=== PATIENT | female | born 1985 | race Caucasian/White ===

== ENCOUNTER 2019-08-29 02:40 | Day surgery (SDC) | payer SELFPAY ==
[2019-08-29] MEDS ORDERED: Sodium Chloride 0.9% 10 ML SDV IV STA (03:11)
[2019-08-29] MEDS ORDERED: Sodium Chloride 0.9% 10 ML Syringe FLUSH PRN (03:11)
--- NOTE | 2019-08-29 03:22 | EDM.PDOC ---
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 Blake is a pleasant 34-year-old woman with no chronic medical problems, , with no past surgical history, who now presents to the ED stating that she had her normal painless menstrual period from 08/05/2019 through 08/09/2019 , then has been spotting with some bleeding, no clots, since 08/12/2019. She then developed suprapubic crampy/sharp pain 2 to 3 days ago, which became worse tonight. The pain does not radiate, and she has not identified any modifiers. No prior similar symptoms. The patient has not had a medical evaluation of her current symptoms. She has not seen a Sales Engineering Manager since her last miscarriage in 2017. She has not taken any [id number] or home remedies to treat her symptoms, stating "I don't do medicine", even if she had a medical condition. Here in the ED, the patient's initial BP is found to be mildly elevated at 148/ 84, otherwise, she is hemodynamically stable, afebrile, saturating 96% on room air. Other than her vaginal bleeding and suprapubic pain, the patient denies recent fever, chills, sore throat, ear pain, nasal or sinus congestion, cough, dyspnea , chest pain, palpitations, nausea, vomiting, constipation, diarrhea, urinary symptoms, recent weight gain or weight loss, recent bloody bowel movements or black bowel movements, recent joint aches, headaches, or rashes. The patient last ate around 20:45 last night. The patient last saw the PCP Dr. Heladio Magallanes about 15 years ago. She saw the Sales Engineering Manager Dr. Víctor Hampton once, on 01/14/2017. Right Lower Abdomen Pain Score (Numeric/FACES): 10 - Related Data Allergies Allergy/AdvReac Type Severity Reaction Status Date / Time Latex, Natural Rubber Allergy Severe Rash Verified 08/29/19 02:53 Home Meds: Home Meds . 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 ED EXAM, GI/ABD - Physical Exam Exam: See Below Exam Limited By: No Limitations General Appearance: Alert, WD/WN, No Apparent Distress Eyes: Bilateral: Normal Appearance, EOMI Ears: Normal External Exam, Hearing Grossly Normal Nose: Normal Inspection Throat/Mouth: Normal Inspection, Normal Lips, Normal Voice, No Airway Compromise Head: Atraumatic, Normocephalic Neck: Normal Inspection, Full Range of Motion Respiratory/Chest: No Respiratory Distress, Lungs Clear, Normal Breath Sounds, No Accessory Muscle Use Cardiovascular: Normal Peripheral Pulses, Regular Rate, Rhythm, No Edema, No Gallop, No JVD, No Murmur, No Rub GI/Abdominal Exam: Normal Bowel Sounds, Soft, No Organomegaly, No Distention, No Abnormal Bruit, No Mass, Tender (Considerable, suprapubic, with less tenderness to the right lower quadrant and left lower quadrant. Mild tenderness to the right upper quadrant, with virtually no tenderness to the left upper quadrant.). No: Rebound (Female) Exam: Other (A small amount of fresh-appearing blood was in the vagina, but no clots or tissue. No vaginal lesions seen. Nulliparous cervical os was closed, with no active bleeding seen.) Rectal (Female) Exam: Deferred Back Exam: Normal Inspection, Full Range of Motion, NT Extremities: Normal Inspection, Normal Range of Motion, No Pedal Edema, Normal Capillary Refill Neurological: Alert, Oriented, Normal Cognition, No Motor/Sensory Deficits Psychiatric: Normal Affect Skin Exam: Warm, Dry, Intact, Normal Color, No Rash Course - Vital Signs Last Recorded V/S: Last Vital Signs Temp 36.7 C 08/29/19 02:50 Pulse 75 08/29/19 02:50 Resp 16 08/29/19 02:50 BP 148/84 H 08/29/19 02:50 Pulse Ox 96 08/29/19 02:50 Orthostatic Blood Pressure [ 109/65 Standing] Orthostatic Blood Pressure [ 111/66 Supine] - Orders/Labs/Meds Orders: Active Orders 24 hr Category Date Time Status Admission Status [Patient Status] [ADT] Routine ADT 08/29/19 05:36 Active Insert Yuen Catheter [Insert Urinary Catheter] [OM.PC] Care 08/29/19 03:40 Ordered Stat Orthostatic Vital Signs [RC] STAT Care 08/29/19 03:09 Active Peripheral IV Care [RC] . DIRECTED Care 08/29/19 03:12 Active Urinary Catheter Assessment [RC] ASDIRECTED Care 08/29/19 03:41 Active Transvaginal Non OB [US] Stat Exams 08/29/19 03:10 Taken CORONAVIRUS COVID-19 PCR PHL Stat Lab 08/29/19 05:26 Ordered Sodium Chloride 0.9% [Saline Flush] Med 08/29/19 03:11 Active 10 ml FLUSH ASDIRECTED PRN Peripheral IV Insertion Adult [OM.PC] Routine Oth 08/29/19 03:11 Ordered Schedule Procedure [COMM] Stat Oth 08/29/19 05:36 Ordered Medication Orders Sodium Chloride (Saline Flush) 10 ml FLUSH ASDIRECTED PRN PRN Reason: Keep Vein Open Last Admin: 08/29/19 03:42 Dose: 10 ml Labs: Laboratory Tests 08/29/19 08/29/19 08/29/19 Range/Units 03:10 03:10 03:10 WBC 7.62 (3.98-10.04) K/mm3 RBC 4.35 (3.98-5.22) M/mm3 Hgb 12.9 (11.2-15.7) gm/dl Hct 39.7 (34.1-44.9) % MCV 91.3 (79.4-94.8) fl MCH 29.7 (25.6-32.2) pg MCHC 32.5 (32.2-35.5) g/dl RDW Std Deviation 39.7 (36.4-46.3) fL Plt Count 288 (182-369) K/mm3 MPV 10.1 (9.4-12.3) fl Neutrophils % (Manual) 43 (40-60) % Band Neutrophils % 2 (0-10) % Lymphocytes % (Manual) 35 (20-40) % Atypical Lymphs % 11 % Monocytes % (Manual) 7 (2-10) % Eosinophils % (Manual) 1 (0.7-5.8) % Basophils % (Manual) 1 (0.1-1.2) Platelet Estimate Adequate Plt Morphology Comment Normal RBC Morph Comment Normal PT 9.8 (9.7-12.0) SECONDS INR 0.93 APTT 25 (22-31) SECONDS Sodium 143 (136-145) mEq/L Potassium 4.2 (3.5-5.1) mEq/L Chloride 106 (98-107) mEq/L Carbon Dioxide 23 (21-32) mEq/L Anion Gap 18.2 H (5-15) BUN 5 L (7-18) mg/dL Creatinine 0.7 (0.55-1.02) mg/dL Est Cr Clr Drug Dosing 98.71 mL/min Estimated GFR (MDRD) > 60 (>60) mL/min BUN/Creatinine Ratio 7.1 L (14-18) Glucose 99 (74-106) mg/dL Calcium 8.6 (8.5-10.1) mg/dL Magnesium 2.1 (1.8-2.4) mg/dl Total Bilirubin 0.2 (0.2-1.0) mg/dL AST 17 (15-37) U/L ALT 22 (14-59) U/L Alkaline Phosphatase 62 (46-116) U/L Total Protein 8.2 (6.4-8.2) g/dl Albumin 4.2 (3.4-5.0) g/dl Globulin 4.0 gm/dL Albumin/Globulin Ratio 1.1 (1-2) HCG, Quant mIU/mL Urine Color (Yellow) Urine Appearance (Clear) Urine pH (5.0-8.0) Ur Specific Kempner (1.005-1.030) Urine Protein (Negative) Urine Glucose (UA) (Negative) Urine Ketones (Negative) Urine Occult Blood (Negative) Urine Nitrite (Negative) Urine Bilirubin (Negative) Urine Urobilinogen (0.2-1.0) Ur Leukocyte Esterase (Negative) Urine RBC (0-5) /hpf Urine WBC (0-5) /hpf Ur Squamous Epith Cells (0-5) /hpf Urine Bacteria (FEW) /hpf Urine Mucus (FEW) /hpf 08/29/19 08/29/19 Range/Units 03:10 03:20 WBC (3.98-10.04) K/mm3 RBC (3.98-5.22) M/mm3 Hgb (11.2-15.7) gm/dl Hct (34.1-44.9) % MCV (79.4-94.8) fl MCH (25.6-32.2) pg MCHC (32.2-35.5) g/dl RDW Std Deviation (36.4-46.3) fL Plt Count (182-369) K/mm3 MPV (9.4-12.3) fl Neutrophils % (Manual) (40-60) % Band Neutrophils % (0-10) % Lymphocytes % (Manual) (20-40) % Atypical Lymphs % % Monocytes % (Manual) (2-10) % Eosinophils % (Manual) (0.7-5.8) % Basophils % (Manual) (0.1-1.2) Platelet Estimate Plt Morphology Comment RBC Morph Comment PT (9.7-12.0) SECONDS INR APTT (22-31) SECONDS Sodium (136-145) mEq/L Potassium (3.5-5.1) mEq/L Chloride (98-107) mEq/L Carbon Dioxide (21-32) mEq/L Anion Gap (5-15) BUN (7-18) mg/dL Creatinine (0.55-1.02) mg/dL Est Cr Clr Drug Dosing mL/min Estimated GFR (MDRD) (>60) mL/min BUN/Creatinine Ratio (14-18) Glucose (74-106) mg/dL Calcium (8.5-10.1) mg/dL Magnesium (1.8-2.4) mg/dl Total Bilirubin (0.2-1.0) mg/dL AST (15-37) U/L ALT (14-59) U/L Alkaline Phosphatase (46-116) U/L Total Protein (6.4-8.2) g/dl Albumin (3.4-5.0) g/dl Globulin gm/dL Albumin/Globulin Ratio (1-2) HCG, Quant 957.0 mIU/mL Urine Color Yellow (Yellow) Urine Appearance Clear (Clear) Urine pH 6.5 (5.0-8.0) Ur Specific Kempner 1.015 (1.005-1.030) Urine Protein Negative (Negative) Urine Glucose (UA) Negative (Negative) Urine Ketones Negative (Negative) Urine Occult Blood 2+ H (Negative) Urine Nitrite Negative (Negative) Urine Bilirubin Negative (Negative) Urine Urobilinogen 0.2 (0.2-1.0) Ur Leukocyte Esterase Negative (Negative) Urine RBC 0-5 (0-5) /hpf Urine WBC 0-5 (0-5) /hpf Ur Squamous Epith Cells 0-5 (0-5) /hpf Urine Bacteria Not seen (FEW) /hpf Urine Mucus Rare (FEW) /hpf Meds: Medications Generic Name Dose Route Start Last Admin Trade Name Freq PRN Reason Stop Dose Admin Sodium Chloride 10 ml 08/29/19 03:11 08/29/19 03:42 Saline Flush FLUSH 10 ml ASDIRECTED PRN Administration Keep Vein Open Discontinued Medications Generic Name Dose Route Start Last Admin Trade Name Freq PRN Reason Stop Dose Admin Sodium Chloride 10 ml 08/29/19 03:11 08/29/19 03:42 Normal Saline IV 08/29/19 03:12 Not Given ASDIRECTED STA - Re-Assessments/Exams Free Text/Narrative Re-Assessment/Exam: 08/29/19 03:13 As above, the patient has had vaginal spotting and bleeding without clots since 08/12/2019, and suprapubic abdominal pain for the past 2 to 3 days, worse tonight. On examination, she has considerable tenderness to her suprapubic region. She will be placed into the gynecologic examination room so that I can examine her cervix. I have ordered a work-up that includes blood work, a urinalysis by quick catheter, orthostatics, and a pelvic ultrasound. The patient asked if she could have some water, but if her current work-up is not revealing, I may need to order a CT of her abdomen and pelvis, and there is the possibility that she could have a surgical abdomen, with something like an ectopic or appendicitis, therefore I need to keep her n.p.o. I offered to give her IV fluid, but she stated that she does not take any medications, even if she has a medical condition, and declined the offer for IV fluid, along with an offer for pain medication and anti-nausea medication. 05/25/20 03:32 On pelvic examination, there was a small amount of fresh-appearing blood in the vagina, but no clots or tissue. No vaginal lesions seen. Her nulliparous cervical os was closed, with no active bleeding seen. 08/29/19 04:23 The patient's CBC is unremarkable. Her CMP is remarkable for an anion gap mildly elevated at 18.2, but with a bicarbonate normal at 23, and the remainder of her CMP being unremarkable. Her magnesium level is within normal limits at 2.1. Her coags are within normal limits. Her quantitative hCG is elevated at 957. Her urinalysis is remarkable for 2+ occult blood with 0-5 RBCs, and is otherwise unremarkable. The patient is back from ultrasound, but the results are still pending. Her mildly elevated quantitative hCG with a closed cervix suggests either an ectopic or a missed . 08/29/19 04:29 The patient is not orthostatic. Transvaginal ultrasound is read by [facility] as "Ultrasound worksheet described a heterogeneous tubular structure RIGHT adnexa. Unclear if this represents a possible fallopian tube versus bowel loop. From images provided very difficult to interpret. Recommend further evaluation with cross-sectional imaging." At this time, I have to consider that the patient's symptoms are due to an ectopic . 08/29/19 04:[address] Wilkerson at 04:32. He will come to the ED to evaluate the patient. He did not need any additional tests at this time. 08/29/19 04:42 Test results and my conversation with Dr. Wilkerson discussed with the patient. She stated that if Dr. Wilkerson needs to take her to the OR, she will agreed to the anesthesia/medication. She stated that she does not like to take medications, but will do so if necessary. 08/29/19 04:55 Dr. Wilkerson is here. 08/29/19 05:21 Dr. Wilkerson is going to take the patient to the OR for an exploratory laparoscopy. We are calling the OR crew in now. 08/29/19 05:27 I have ordered a stat pre-op [employer] NOW COVID-19 assay SARS-CoV-2 virus test as well as a [employer] GeneXpert Xpress System SARS-CoV-2 virus test. Departure - Departure Time of Disposition: 05:22 Disposition: DC/Tfer to [facility] Condition: Good Clinical Impression: Ectopic - Discharge Information *PRESCRIPTION DRUG MONITORING PROGRAM REVIEWED*: Not Applicable *COPY OF PRESCRIPTION DRUG MONITORING REPORT IN PATIENT REFUGIO: Not Applicable Referrals: PCP,None [Primary Care Provider] - Elpidio Wilkerson MD [Physician] - Forms: ED Department Discharge Sepsis Event Note - Evaluation Sepsis Screening Result: No Definite Risk - Focused Exam Vital Signs: Vital Signs Temp Pulse Resp BP Pulse Ox 08/29/19 02:50 36.7 C 75 16 148/84 H 96 Date Exam was Performed: 08/29/19 Time Exam was Performed: 05:37 - My Orders Last 24 Hours: My Active Orders 08/29/19 03:09 Orthostatic Vital Signs [RC] STAT 08/29/19 03:10 Transvaginal Non OB [US] Stat 08/29/19 03:11 Sodium Chloride 0.9% [Saline Flush] 10 ml FLUSH ASDIRECTED PRN Peripheral IV Insertion Adult [OM.PC] Routine 08/29/19 03:12 Peripheral IV Care [RC] . DIRECTED 08/29/19 03:40 Insert Yuen Catheter [Insert Urinary Catheter] [OM.PC] Stat 08/29/19 03:41 Urinary Catheter Assessment [RC] ASDIRECTED 08/29/19 05:26 CORONAVIRUS COVID-19 PCR PHL Stat 08/29/19 05:36 Admission Status [Patient Status] [ADT] Routine Schedule Procedure [COMM] Stat - Assessment/Plan Last 24 Hours: My Active Orders 08/29/19 03:09 Orthostatic Vital Signs [RC] STAT 08/29/19 03:10 Transvaginal Non OB [US] Stat 08/29/19 03:11 Sodium Chloride 0.9% [Saline Flush] 10 ml FLUSH ASDIRECTED PRN Peripheral IV Insertion Adult [OM.PC] Routine 08/29/19 03:12 Peripheral IV Care [RC] . DIRECTED 08/29/19 03:40 Insert Yuen Catheter [Insert Urinary Catheter] [OM.PC] Stat 08/29/19 03:41 Urinary Catheter Assessment [RC] ASDIRECTED 08/29/19 05:26 CORONAVIRUS COVID-19 PCR PHL Stat 08/29/19 05:36 Admission Status [Patient Status] [ADT] Routine Schedule Procedure [COMM] Stat
--- NOTE | 2019-08-29 05:45 | PCM.LDHP ---
L&D History of Present Illness - General Date of Service: 08/29/19 Admit Problem/Dx: Admission Diagnosis/Problem Admission Diagnosis/Problem 08/29/19 05:31 Billie Is a 34-year-old 3 para 0020 white female who is seen in the emergency room for complaints of right lower quadrant pain and is found to have positive test and an abnormal ultrasound showing a heterogeneous tubular structure in the right adnexal area. Findings possibly consistent with ectopic . Source of Information: Patient History Limitations: Reports: No Limitations - History of Present Illness Introduction:: Billie Is a 34-year-old 3 para 0020 white female who is seen in the emergency room for complaints of right lower quadrant pain and is found to have positive test and an abnormal ultrasound showing a heterogeneous tubular structure in the right adnexal area. Findings possibly consistent with ectopic . She reports pain started 2-3 days ago. Increased tonight sharply to the level of 10/10. She had her certain last menstrual period started on 08/05/2019. Is heavy for 5 days after which she had spotting until the present time. She denies any shoulder pain, neck pain, abdominal distention. Bleeding is heavy spotting with normal clot passage or aggressive bleeding. She requires approximate 4-5 tampons per day. 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 She does not have any significant symptoms at this time. On evaluation in the emergency room notes have respiratory quadrant pain. The quantitative beta hCG is not 157.0 mU/mL. Her CBC, compassed metabolic profile and coags are normal. Urinalysis is normal to exception of 2+ blood. Ultrasound shows uterus which is normal. Endometrial stripe is normal at 9 mm thickness. No evidence of intrauterine or gestational sac. In the right adnexal there is a small 1.4 x 1.4 x 1.1 hemorrhagic cyst in the right ovary. There is a heterogeneous tubular structure in the right adnexa. It is unclear as to whether this represents bowel or right fallopian tube. There is a small amount of free fluid. There is normal left adnexal structures with no masses and normal ovarian blood flow. Cannot entirely rule out ectopic . Discussion is held patient has to findings and possible risk of ectopic . The procedure of laparoscopy, possible salpingectomy, possible laparotomy are discussed in detail including the risk of allergy, anesthesia, bleeding, blood clots, infection, injury, Borofax on future fertility and possible need for blood transfusion. She appears understand and wish to proceed. She has signed a consent. Allergies: Latex Medications: None Past medical history: 1. Spontaneous 2 first trimester Past surgical history: Unremarkable Family history: Mother and father are alive and generally well. Mother takes a medication heart palpitations. Patient has 3 older sisters who are alive and healthy. All grandparents are . They're all elderly in their 80s. Maternal grandmother had dementia but was involved in motor vehicle accident in a longterm for many years prior to . Paternal grandfather had strokes prior to his demise. Paternal grandmother and grandfather secondary to heart disease and blood vessel disease. No anesthesia, bleeding, blood clotting problems are noted in the family. Social history: Patient is single. Her boyfriend is in the hospital attending her but waiting for her in the waiting room. She smokes approximately pack cigarettes per week, uses alcohol 2 times per week but denies any drug use whatsoever. He works at 2 jobs ones with [employer] and the other as a warehouse puller at [employer]. Review of systems: In general patient has complaints of right lower quadrant pain onset 2 days ago along with vaginal bleeding.. Skin: Negative Lungs: No infectious symptoms or shortness of breath Cardiovascular: No chest pain or exercise intolerance Breasts: No lumps, changes in size, pain, dimpling, discharge or axillary or supraclavicular concerns. GI: Negative : See history of present illness Musculoskeletal: Negative Neurological: Negative In general the patient is well-developed, well-nourished, pleasant female of stated age in no acute distress. Blood pressure mildly increased. Pulses in the 90s. Skin is warm dry without lesions. HEENT, neck and back within normal limits. Lungs are clear with good breath sounds in all lung burton. Cardiovascular exam shows regular and rhythm without murmurs. Abdomen is flat, with fair bowel sounds. Her is guarding and rebound tenderness with palpation right lower quadrant. No masses are palpated above the pubic bone. No inguinal lymphadenopathy is noted.. Genital per bimanual shows normal external genitalia, BUS, pubic hair pattern. There is normal support, secretions and estrogenization vagina. Uterus is small , anterior, freely mobile, without parametrial induration or adnexal abnormalities. There is significant tenderness with palpation in the right adnexa. Questionable fullness noted in the right adnexa. Extremities and neurological exam are grossly within normal limits. - Related Data Allergies/Adverse Reactions: Allergies Allergy/AdvReac Type Severity Reaction Status Date / Time Latex, Natural Rubber Allergy Severe Rash Verified 08/29/19 02:53 Home Medications: Home Meds . 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) H&P Review of Systems - Review of Systems: Review Of Systems: See Below L&D Exam - Exam Exam: See Below - Vital Signs Vital Signs: Last Vital Signs Temp 36.7 C 08/29/19 02:50 Pulse 75 08/29/19 02:50 Resp 16 08/29/19 02:50 BP 148/84 H 08/29/19 02:50 Pulse Ox 96 08/29/19 02:50 Orthostatic Blood Pressure [ 109/65 Standing] Orthostatic Blood Pressure [ 111/66 Supine] Weight: 65.771 kg - Patient Data Lab Results Last 24 hrs: Laboratory Results - last 24 hr 08/29/19 08/29/19 08/29/19 Range/Units 03:10 03:10 03:10 WBC 7.62 (3.98-10.04) K/mm3 RBC 4.35 (3.98-5.22) M/mm3 Hgb 12.9 (11.2-15.7) gm/dl Hct 39.7 (34.1-44.9) % MCV 91.3 (79.4-94.8) fl MCH 29.7 (25.6-32.2) pg MCHC 32.5 (32.2-35.5) g/dl RDW Std Deviation 39.7 (36.4-46.3) fL Plt Count 288 (182-369) K/mm3 MPV 10.1 (9.4-12.3) fl Neutrophils % (Manual) 43 (40-60) % Band Neutrophils % 2 (0-10) % Lymphocytes % (Manual) 35 (20-40) % Atypical Lymphs % 11 % Monocytes % (Manual) 7 (2-10) % Eosinophils % (Manual) 1 (0.7-5.8) % Basophils % (Manual) 1 (0.1-1.2) Platelet Estimate Adequate Plt Morphology Comment Normal RBC Morph Comment Normal PT 9.8 (9.7-12.0) SECONDS INR 0.93 APTT 25 (22-31) SECONDS Sodium 143 (136-145) mEq/L Potassium 4.2 (3.5-5.1) mEq/L Chloride 106 (98-107) mEq/L Carbon Dioxide 23 (21-32) mEq/L Anion Gap 18.2 H (5-15) BUN 5 L (7-18) mg/dL Creatinine 0.7 (0.55-1.02) mg/dL Est Cr Clr Drug Dosing 98.71 mL/min Estimated GFR (MDRD) > 60 (>60) mL/min BUN/Creatinine Ratio 7.1 L (14-18) Glucose 99 (74-106) mg/dL Calcium 8.6 (8.5-10.1) mg/dL Magnesium 2.1 (1.8-2.4) mg/dl Total Bilirubin 0.2 (0.2-1.0) mg/dL AST 17 (15-37) U/L ALT 22 (14-59) U/L Alkaline Phosphatase 62 (46-116) U/L Total Protein 8.2 (6.4-8.2) g/dl Albumin 4.2 (3.4-5.0) g/dl Globulin 4.0 gm/dL Albumin/Globulin Ratio 1.1 (1-2) HCG, Quant mIU/mL Urine Color (Yellow) Urine Appearance (Clear) Urine pH (5.0-8.0) Ur Specific [place] (1.005-1.030) Urine Protein (Negative) Urine Glucose (UA) (Negative) Urine Ketones (Negative) Urine Occult Blood (Negative) Urine Nitrite (Negative) Urine Bilirubin (Negative) Urine Urobilinogen (0.2-1.0) Ur Leukocyte Esterase (Negative) Urine RBC (0-5) /hpf Urine WBC (0-5) /hpf Ur Squamous Epith Cells (0-5) /hpf Urine Bacteria (FEW) /hpf Urine Mucus (FEW) /hpf 08/29/19 08/29/19 Range/Units 03:10 03:20 WBC (3.98-10.04) K/mm3 RBC (3.98-5.22) M/mm3 Hgb (11.2-15.7) gm/dl Hct (34.1-44.9) % MCV (79.4-94.8) fl MCH (25.6-32.2) pg MCHC (32.2-35.5) g/dl RDW Std Deviation (36.4-46.3) fL Plt Count (182-369) K/mm3 MPV (9.4-12.3) fl Neutrophils % (Manual) (40-60) % Band Neutrophils % (0-10) % Lymphocytes % (Manual) (20-40) % Atypical Lymphs % % Monocytes % (Manual) (2-10) % Eosinophils % (Manual) (0.7-5.8) % Basophils % (Manual) (0.1-1.2) Platelet Estimate Plt Morphology Comment RBC Morph Comment PT (9.7-12.0) SECONDS INR APTT (22-31) SECONDS Sodium (136-145) mEq/L Potassium (3.5-5.1) mEq/L Chloride (98-107) mEq/L Carbon Dioxide (21-32) mEq/L Anion Gap (5-15) BUN (7-18) mg/dL Creatinine (0.55-1.02) mg/dL Est Cr Clr Drug Dosing mL/min Estimated GFR (MDRD) (>60) mL/min BUN/Creatinine Ratio (14-18) Glucose (74-106) mg/dL Calcium (8.5-10.1) mg/dL Magnesium (1.8-2.4) mg/dl Total Bilirubin (0.2-1.0) mg/dL AST (15-37) U/L ALT (14-59) U/L Alkaline Phosphatase (46-116) U/L Total Protein (6.4-8.2) g/dl Albumin (3.4-5.0) g/dl Globulin gm/dL Albumin/Globulin Ratio (1-2) HCG, Quant 957.0 mIU/mL Urine Color Yellow (Yellow) Urine Appearance Clear (Clear) Urine pH 6.5 (5.0-8.0) Ur Specific [place] 1.015 (1.005-1.030) Urine Protein Negative (Negative) Urine Glucose (UA) Negative (Negative) Urine Ketones Negative (Negative) Urine Occult Blood 2+ H (Negative) Urine Nitrite Negative (Negative) Urine Bilirubin Negative (Negative) Urine Urobilinogen 0.2 (0.2-1.0) Ur Leukocyte Esterase Negative (Negative) Urine RBC 0-5 (0-5) /hpf Urine WBC 0-5 (0-5) /hpf Ur Squamous Epith Cells 0-5 (0-5) /hpf Urine Bacteria Not seen (FEW) /hpf Urine Mucus Rare (FEW) /hpf Result Diagrams: 08/29/19 03:10 08/29/19 03:10 Problem List Initiated/Reviewed/Updated: Yes Orders Last 24hrs: Active Orders 24 hr Category Date Time Status Insert Yuen Catheter [Insert Urinary Catheter] [OM.PC] Care 08/29/19 03:40 Ordered Stat Orthostatic Vital Signs [RC] STAT Care 08/29/19 03:09 Active Peripheral IV Care [RC] . DIRECTED Care 08/29/19 03:12 Active Urinary Catheter Assessment [RC] ASDIRECTED Care 08/29/19 03:41 Active Transvaginal Non OB [US] Stat Exams 08/29/19 03:10 Taken CORONAVIRUS COVID-19 PCR PHL Stat Lab 08/29/19 05:26 Ordered Sodium Chloride 0.9% [Saline Flush] Med 08/29/19 03:11 Active 10 ml FLUSH ASDIRECTED PRN Peripheral IV Insertion Adult [OM.PC] Routine Oth 08/29/19 03:11 Ordered Medication Orders Sodium Chloride (Saline Flush) 10 ml FLUSH ASDIRECTED PRN PRN Reason: Keep Vein Open Last Admin: 08/29/19 03:42 Dose: 10 ml Assessment/Plan Comment:: 1. Female with right lower quadrant pain, quantitative beta-hCG of 957.0 mU/mL, vaginal bleeding, empty uterus and a heterogeneous tubular structure in the right adnexa-us consider this and ectopic until proven otherwise. 2. Generally healthy female-only past history of miscarriages 2 with last one in 2017-both have passed naturally. 3. Patient last ate at 2030 hrs. last evening. 4. Risk factors for surgery include history: History of smoking 1 pack per week 5. CBC, CMP, creatinine essentially within normal limits. Urinalysis shows only 2+ blood. 6. Latex allergy Plan: 1. Laparoscopy, possible salpingectomy, possible laparotomy. Procedure, risks, benefits, limitations, follow-up and possible impact on future discussed with patient. She appears understand, wishes to proceed and has signed a consent. 2. DVT prophylaxis with SCDs 3. Antibiotic prophylaxis with Ancef 2 g IV preop 4. Latex free gloves etc. to be used 5. Obtain type and Rh candidate for Rh immunoglobulin therapy.
[2019-08-29] MEDS ORDERED: Ondansetron 4 MG/2 ML SDV ONE (05:46)
[2019-08-29] MEDS ORDERED: Propofol 200 MG/20 ML SDV ONE (05:46)
[2019-08-29] MEDS ORDERED: Lidocaine 1% 4 ML ONE (05:46)
[2019-08-29] MEDS ORDERED: Midazolam 1 MG/ML 2 ML SDV ONE (05:46)
[2019-08-29] MEDS ORDERED: fentaNYL 250 MCG/5 ML SDV ONE (05:46)
[2019-08-29] MEDS ORDERED: Bupivacaine 0.5% 30 ML SDV ONE (05:48)
[2019-08-29] MEDS ORDERED: ceFAZolin 2 GM in Premix Bag 1 BAG IV ONE (05:54)
--- NOTE | 2019-08-29 06:04 | PCM.PREANE ---
Preanesthetic Assessment - Procedure Proposed Procedure: expl lap - Anesthesia/Transfusion/Family Hx Anesthesia History: No Prior Anesthesia Family History of Anesthesia Reaction: No Transfusion History: No Prior Transfusion(s) - Review of Systems General: No Symptoms Pulmonary: No Symptoms, Sputum Gastrointestinal: Abdominal Pain (right side- started at last 3-4 days) Neurological: Seizure (childhood seizures) Other: Reports: None - Physical Assessment NPO Status Date: 08/29/19 NPO Status Time: 00:30 Vital Signs: Last Vital Signs Temp 98.0 F 08/29/19 02:50 Pulse 75 08/29/19 02:50 Resp 16 08/29/19 02:50 BP 148/84 H 08/29/19 02:50 Pulse Ox 96 08/29/19 02:50 Orthostatic Blood Pressure [ 109/65 Standing] Orthostatic Blood Pressure [ 111/66 Supine] Height: 5 ft 4 in Weight: 65.771 kg ASA Class: 2E Mental Status: Alert & Oriented x3 Airway Class: Mallampati = 1 Dentition: Reports: Broken Tooth/Teeth (left front chipped tooth) Thyro-Mental Finger Breadths: 3 Mouth Opening Finger Breadths: 3 ROM/Head Extension: Full Lungs: Clear to Auscultation, Normal Respiratory Effort Cardiovascular: Regular Rate, Regular Rhythm, No Murmurs - Lab Values: Laboratory Last Values WBC 7.62 K/mm3 (3.98-10.04) 08/29/19 03:10 RBC 4.35 M/mm3 (3.98-5.22) 08/29/19 03:10 Hgb 12.9 gm/dl (11.2-15.7) 08/29/19 03:10 Hct 39.7 % (34.1-44.9) 08/29/19 03:10 MCV 91.3 fl (79.4-94.8) 08/29/19 03:10 MCH 29.7 pg (25.6-32.2) 08/29/19 03:10 MCHC 32.5 g/dl (32.2-35.5) 08/29/19 03:10 RDW Std Deviation 39.7 fL (36.4-46.3) 08/29/19 03:10 Plt Count 288 K/mm3 (182-369) 08/29/19 03:10 MPV 10.1 fl (9.4-12.3) 08/29/19 03:10 Neutrophils % (Manual) 43 % (40-60) 08/29/19 03:10 Band Neutrophils % 2 % (0-10) 08/29/19 03:10 Lymphocytes % (Manual) 35 % (20-40) 08/29/19 03:10 Atypical Lymphs % 11 % 08/29/19 03:10 Monocytes % (Manual) 7 % (2-10) 08/29/19 03:10 Eosinophils % (Manual) 1 % (0.7-5.8) 08/29/19 03:10 Basophils % (Manual) 1 (0.1-1.2) 08/29/19 03:10 Platelet Estimate Adequate 08/29/19 03:10 Plt Morphology Comment Normal 08/29/19 03:10 RBC Morph Comment Normal 08/29/19 03:10 PT 9.8 SECONDS (9.7-12.0) 08/29/19 03:10 INR 0.93 08/29/19 03:10 APTT 25 SECONDS (22-31) 08/29/19 03:10 Sodium 143 mEq/L (136-145) 08/29/19 03:10 Potassium 4.2 mEq/L (3.5-5.1) 08/29/19 03:10 Chloride 106 mEq/L (98-107) 08/29/19 03:10 Carbon Dioxide 23 mEq/L (21-32) 08/29/19 03:10 Anion Gap 18.2 (5-15) H 08/29/19 03:10 BUN 5 mg/dL (7-18) L 08/29/19 03:10 Creatinine 0.7 mg/dL (0.55-1.02) 08/29/19 03:10 Est Cr Clr Drug Dosing 98.71 mL/min 08/29/19 03:10 Estimated GFR (MDRD) > 60 mL/min (>60) 08/29/19 03:10 BUN/Creatinine Ratio 7.1 (14-18) L 08/29/19 03:10 Glucose 99 mg/dL (74-106) 08/29/19 03:10 Calcium 8.6 mg/dL (8.5-10.1) 08/29/19 03:10 Magnesium 2.1 mg/dl (1.8-2.4) 08/29/19 03:10 Total Bilirubin 0.2 mg/dL (0.2-1.0) 08/29/19 03:10 AST 17 U/L (15-37) 08/29/19 03:10 ALT 22 U/L (14-59) 08/29/19 03:10 Alkaline Phosphatase 62 U/L (46-116) 08/29/19 03:10 Total Protein 8.2 g/dl (6.4-8.2) 08/29/19 03:10 Albumin 4.2 g/dl (3.4-5.0) 08/29/19 03:10 Globulin 4.0 gm/dL 08/29/19 03:10 Albumin/Globulin Ratio 1.1 (1-2) 08/29/19 03:10 HCG, Quant 957.0 mIU/mL 08/29/19 03:10 Urine Color Yellow (Yellow) 08/29/19 03:20 Urine Appearance Clear (Clear) 08/29/19 03:20 Urine pH 6.5 (5.0-8.0) 08/29/19 03:20 Ur Specific [place] 1.015 (1.005-1.030) 08/29/19 03:20 Urine Protein Negative (Negative) 08/29/19 03:20 Urine Glucose (UA) Negative (Negative) 08/29/19 03:20 Urine Ketones Negative (Negative) 08/29/19 03:20 Urine Occult Blood 2+ (Negative) H 08/29/19 03:20 Urine Nitrite Negative (Negative) 08/29/19 03:20 Urine Bilirubin Negative (Negative) 08/29/19 03:20 Urine Urobilinogen 0.2 (0.2-1.0) 08/29/19 03:20 Ur Leukocyte Esterase Negative (Negative) 08/29/19 03:20 Urine RBC 0-5 /hpf (0-5) 08/29/19 03:20 Urine WBC 0-5 /hpf (0-5) 08/29/19 03:20 Ur Squamous Epith Cells 0-5 /hpf (0-5) 08/29/19 03:20 Urine Bacteria Not seen /hpf (FEW) 08/29/19 03:20 Urine Mucus Rare /hpf (FEW) 08/29/19 03:20 - Allergies Allergies/Adverse Reactions: Allergies Allergy/AdvReac Type Severity Reaction Status Date / Time Latex, Natural Rubber Allergy Severe Rash Verified 08/29/19 02:53 - Blood Blood Available: No - Acknowledgements Anesthesia Type Planned: General Anesthesia Pt an Appropriate Candidate for the Planned Anesthesia: Yes Alternatives and Risks of Anesthesia Discussed w Pt/Guardian: Yes Pt/Guardian Understands and Agrees with Anesthesia Plan: Yes PreAnesthesia Questionnaire Cardiovascular History: Reports: None Respiratory History: Reports: None Gastrointestinal History: Reports: None 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 [No Known Home Meds] 08/29/19 [History] - CURRENT (IN HOUSE) MEDS Current Meds: Current Medications Cefazolin Sodium/Dextrose 2 gm (/ Premix) 50 mls @ 100 mls/hr IV ONETIME ONE Stop: 08/29/19 06:23 Sodium Chloride (Saline Flush) 10 ml FLUSH ASDIRECTED PRN PRN Reason: Keep Vein Open Last Admin: 08/29/19 03:42 Dose: 10 ml Discontinued Medications Bupivacaine HCl (Marcaine 0.5%) Confirm Administered Dose 30 ml .ROUTE .STK-MED ONE Stop: 08/29/19 05:49 Fentanyl (Sublimaze) Confirm Administered Dose 250 mcg .ROUTE .STK-MED ONE Stop: 08/29/19 05:47 Lidocaine HCl (Xylocaine-Mpf 1%) Confirm Administered Dose 4 mls @ as directed .ROUTE .STK-MED ONE Stop: 08/29/19 05:47 Midazolam HCl (Versed 1 Mg/Ml) Confirm Administered Dose 2 mg .ROUTE .STK-MED ONE Stop: 08/29/19 05:47 Ondansetron HCl (Zofran) Confirm Administered Dose 4 mg .ROUTE .STK-MED ONE Stop: 08/29/19 05:47 Propofol (Diprivan 20 Ml) Confirm Administered Dose 200 mg .ROUTE .STK-MED ONE Stop: 08/29/19 05:47 Sodium Chloride (Normal Saline) 10 ml IV ASDIRECTED STA Stop: 08/29/19 03:12 Last Admin: 08/29/19 03:42 Dose: Not Given
[2019-08-29] MEDS ORDERED: Lactated Ringers 1,000 ML ONE (06:06)
[2019-08-29] MEDS ORDERED: Rocuronium 50 MG/5 ML Vial ONE (06:16)
[2019-08-29] MEDS ORDERED: ceFAZolin 1 GM Vial ONE (06:20)
[2019-08-29] MEDS ORDERED: Ondansetron 4 MG/2 ML SDV IVPUSH PRN ×2 (06:25→07:23)
[2019-08-29] MEDS ORDERED: HYDROmorphone 0.5 MG/0.5 ML Syringe IVPUSH PRN (06:25)
[2019-08-29] MEDS ORDERED: fentaNYL 100 MCG/2 ML SDV IVPUSH PRN (06:25)
[2019-08-29] MEDS ORDERED: Ketorolac 30 MG/ML SDV ONE (06:31)
[2019-08-29] MEDS ORDERED: Dexamethasone 4 MG/ML 5 ML MDV ONE (06:55)
[2019-08-29] MEDS ORDERED: Acetaminophen/oxyCODONE 325-5 MG Tab PO PRN (07:23)
[2019-08-29] MEDS ORDERED: Ketorolac 30 MG/ML SDV IVPUSH SCH (07:30)
--- NOTE | 2019-08-29 07:33 | PCM.POSTAN ---
POST ANESTHESIA ASSESSMENT - MENTAL STATUS Mental Status: Alert, Oriented - VITAL SIGNS Vital Signs: Last Vital Signs Temp 98.0 F 08/29/19 02:50 Pulse 75 08/29/19 02:50 Resp 16 08/29/19 02:50 BP 148/84 H 08/29/19 02:50 Pulse Ox 96 08/29/19 02:50 Orthostatic Blood Pressure [ 109/65 Standing] Orthostatic Blood Pressure [ 111/66 Supine] 119/95 99% 107 14 98.9 - RESPIRATORY Respiratory Status: Respiratory Rate WNL, Airway Patent, O2 Saturation Stable, Supplemental Oxygen - CARDIOVASCULAR CV Status: Pulse Rate WNL, Blood Pressure Stable - GASTROINTESTINAL GI Status: No Symptoms - PAIN Pain Score: 0 - POST OP HYDRATION Hydration Status: Adequate & Stable - OBSERVATIONS Free Text/Narrative:: Crying a bit- denies pain- states panic attack- reassurance given
--- NOTE | 2019-08-29 07:36 | PCM.OPNOTE ---
- General Post-Op/Procedure Note Date of Surgery/Procedure: 08/29/19 Operative Procedure(s): Laparoscopy, right salpingectomy, biopsy of left uterosacral ligament Findings: 1. Right tubal 2. Hemoperitoneum 3. Scarring-left uterosacral ligament consistent with endometriosis. 4. Normal left fallopian tube, bilateral ovaries, uterus, appendix, liver edge and gallbladder. Pre Op Diagnosis: 1. Positive test, right lower quadrant pain, adnexal tubular mass -Suspected right tubal Post-Op Diagnosis: Same with probable endometriosis left uterosacral ligament Anesthesia Technique: General ET Tube Other Anesthesia Type: Marcaine 0.5% local-Total of approximately 10 mL Primary Surgeon: Elpidio Wilkerson Anesthesia Provider: Rona Minor Pathology: 1. Right fallopian tube 2. Biopsy of left uterosacral ligament Fluid Replacement, Intraop: 600 EBL in mLs: 5 Drain/Tube Comments:: Indwelling bladder catheter during surgery only moved at the end of the case. Condition: Good Free Text/Narrative:: Intake & Output 08/28/19 08/29/19 08/29/19 22:59 06:59 14:59 Output Total 600 Balance -600 Surgery duration: 45 minutes Procedure: The patient was taken to the operating room and placed in supine position on the operative table. She had sequential compression stockings in place for DVT prophylaxis and had been given 2 g of Ancef IV for infection prophylaxis. She was administered general endotracheal anesthesia. After administration of anesthesia the patient was placed in dorsal lithotomy position and prepped and draped in usual fashion. An indwelling bladder catheter was placed as was a uterine manipulator. It should be noted the uterus sounded to 8 cm and was noted to be anterior and mid position. Infraumbilical incision site and suprapubic site were then infiltrated with approximately 3-4 mL of Marcaine 0.5%. 5 mm and 10 mm incisions were made in these areas respectively. Verres needle was placed in the infraumbilical incision site and pneumoperitoneum was established was in 2 L of CO2. The laparoscopic sleeve was then placed as was the scope. Under direct visualization the suprapubic site was developed with a 10 mm port. Pelvis was evaluated findings as above. Left uterosacral ligament showed some scarring and evidence of endometriosis. The right fallopian tube was found to be dilated and distended from the section all the way through the end with clot extending out of the endometrial fallopian tube. There was approximately 20-30 mL of dark red blood in the posterior cul-de-sac. Findings consistent with a right tubal . The right fallopian tube was then removed. A right lower quadrant 5 mm port site was established under direct visualization with routine procedure. The Enseal vessel closure system was used to develop the nasal salpinx and remove the tube was freed up placed in an Endo Catch bag and removed through the 10 mm suprapubic port At this time the hemoperitoneum was evacuated using suction aspiration device. Small area of endometriosis on the left uterosacral ligament was biopsied with the site cauterized to control this. The 10 mm port site was then closed using a Jackson Powers device and 1 Vicryl suture for her procedure. This closed well. The pelvis was evaluated hemostasis was confirmed and the right lower quadrant port was removed under direct visualization. Pneumoperitoneum was reversed and the upper sleeve was removed. All 3 skin incision sites were closed with interrupted sutures of 3-0 Monocryl in a routine fashion. Incisions were further approximated with Dermabond skin glue. The uterine manipulator and Yuen catheter removed. Patient was returned to the supine position and awakened from general endotracheal anesthesia. She left the operating room in good condition.
--- NOTE | 2019-08-29 07:46 | PCM48HPAN ---
Post Anesthesia Note - EVALUATION WITHIN 48HRS OF ANESTHETIC Vital Signs in Normal Range: Yes Patient Participated in Evaluation: Yes Respiratory Function Stable: Yes Airway Patent: Yes Cardiovascular Function Stable: Yes Hydration Status Stable: Yes Pain Control Satisfactory: Yes Nausea and Vomiting Control Satisfactory: Yes Mental Status Recovered: Yes (waking up more- rests) Vital Signs: Last Vital Signs Temp 99.0 F 08/29/19 07:25 Pulse 85 08/29/19 07:30 Resp 11 L 08/29/19 07:30 BP 142/91 H 08/29/19 07:30 Pulse Ox 100 08/29/19 07:42 Orthostatic Blood Pressure [ 109/65 Standing] Orthostatic Blood Pressure [ 111/66 Supine]
--- NOTE | 2019-08-29 09:44 | US ---
Pelvic ultrasound: Multiple real-time images were obtained transvaginally. Thick tubular structure noted within the right adnexa. Uncertain if this represents a loop of bowel or thickened inflamed fallopian tube from PID. Small amount of fluid seen within the cul-de-sac. Uterus is anteverted. No myometrial abnormality is seen. Endometrial thickness is normal at 9 mm. Ovaries show evidence of follicles. No larger cyst or solid abnormality is appreciated. Measurements: Uterus: Length 7.0 cm, AP height 3.7 cm, transverse width 4.7 cm Right ovary: 3.3 x 1.7 x 1.9 cm Left ovary: 2.9 x 1.9 x 1.6 cm Impression: 1. Thick tubular structure within the right adnexa. As mentioned above, uncertain if this represents a loop of bowel or thickened inflamed fallopian tube from PID. 2. Small amount of free fluid within the cul-de-sac believed to be physiologic. 3. No additional abnormality is seen on pelvic ultrasound study. Diagnostic code #3 Agree with preliminary report issued by [facility] ([facility] preliminary report dictated on 08/29/19, 5:26 AM Central Daylight Time) Study was dictated in MDT
== END 2019-08-29 10:43 | disposition home or self-care (01) ==
LOC: JD.ED 02:40 → JD.SDS 05:40
PROVIDERS: ATTEND Obstetrics & Gynecology
DX: O00.101 Right tubal pregnancy without intrauterine pregnancy (principal); N80.0 Endometriosis of uterus; F17.210 Nicotine dependence, cigarettes, uncomplicated; Z91.040 Latex allergy status; Z11.59 Encounter for screening for other viral diseases
CPT/HCPCS: 36415; 58578; 59151; 76830; 80053; 81001; 83735; 84702; 85007; 85027; 85610; 85730; 86850; 86900; 86901; 87635; 99285; J0690; J1100; J1885; J2001; J2250; J2405; J2704; J2710; J3010; J3490; 00840; U0002

== ENCOUNTER 2021-04-16 22:13 | Emergency (ER) | payer SELFPAY ==
[2021-04-16] MEDS ORDERED: Ibuprofen 600 MG Tab PO ONE (22:30)
== END 2021-04-16 23:23 | disposition home or self-care (01) ==
LOC: JD.ED 22:13
DX: S52.502A Unspecified fracture of the lower end of left radius, initial encounter for closed fracture (principal); Z91.040 Latex allergy status; W01.0XXA Fall on same level from slipping, tripping and stumbling without subsequent striking against object, initial encounter; Y99.0 Civilian activity done for income or pay
CPT/HCPCS: 29125; 73090; 99283; A9270